=== PATIENT | female | born 1970 | race Caucasian/White ===

== ENCOUNTER 2018-08-02 02:00 | Observation (INO) ==
[2018-08-02] MEDS ORDERED: 0.9 % Sodium Chloride 1,000 ML IVC ONE (02:30)
[2018-08-02] MEDS ORDERED: Ipratropium/Albuterol Neb 3 ML IH ONE ×2 (02:37)
--- NOTE | 2018-08-02 02:37 | Emergency Department Note ---
Disposition Clinical Impression: Pneumonia Disposition: Admitted As Inpatient Condition: Fair Time of Disposition: 03:10 SOB HPI - General Chief Complaint: ED Shortness of Breath/Dyspnea Stated Complaint: Flu symptoms trouble breathing Time Seen by Provider: 08/02/18 02:15 Source: patient Limitations: no limitations Nursing Notes Reviewed: Yes Vital Signs Reviewed: Yes - History of Present Illness Ms. Durán had flulike symptoms about a week ago and has been progressively worse. She has had some ill contacts with similar symptoms who have resolved. She has been feeling the way she is now for the last couple of days coughing productively brownish sputum short of breath with a lot of right sided back pain on coughing and deep inspiration and diffuse muscle aches. She is a smoker but does not take any home medications. Fevers in the past week up to 103. By mouth intake markedly decreased secondary to no energy and no appetite. No nausea vomiting or diarrhea. - Related Data Home Medications Medication Instructions Recorded Confirmed No Known Home Drugs 08/02/18 08/02/18 Allergies Allergy/AdvReac Type Severity Reaction Status Date / Time No Known Allergies Allergy Verified 08/02/18 02:40 Constitutional: Reports: fever ENT ED: Denies: congestion Cardiovascular: Reports: dyspnea on exertion Respiratory: Reports: cough, dyspnea Gastrointestinal: Denies: nausea, vomiting, diarrhea Genitourinary: Reports: other (Decrease frequency of urination) Musculoskeletal: Reports: back pain, myalgia Integumentary: Denies: rash Neurological: Denies: headache Endocrine: Reports: fatigue Hematological/Lymphatic: Denies: easy bleeding, easy bruising Past Medical History - Past Medical History Medical history: Reports: no medical history - Social History Smoking Status: Current every day smoker Drug use: Reports: marijuana Physical Exam - General Limitations: no limitations General appearance: alert, in distress (Complaining of diffuse pain especially right mid back), other (She appears much older than stated age) - Head Head exam: atraumatic, normocephalic - Eye Eye exam: Present: normal appearance - ENT ENT exam: mucous membranes dry - Neck Neck exam: Present: normal inspection - Chest Chest inspection: Present: normal inspection, symmetric chest wall rise - Respiratory Respiratory exam: Present: normal lung sounds bilaterally (Clear to auscultation but decreased air movement). Absent: wheezes, stridor - Cardiovascular Cardiovascular exam: Present: tachycardia - Abdominal Exam Abdominal exam: Present: soft, Non-Tender - Extremities Exam Extremities exam: Present: calf tenderness (Bilateral calf tenderness. No erythema swelling or cord). Absent: pedal edema - Neurological Exam Neurological exam: Present: alert - Psychiatric Psychiatric exam: Present: agitated, anxious - Skin Skin exam: Present: warm, dry Course Vital Signs Temperature 98.1 F 08/02/18 02:10 Pulse Rate 115 08/02/18 02:10 Respiratory Rate 20 08/02/18 02:10 Blood Pressure 139/91 08/02/18 02:10 O2 Sat by Pulse Oximetry 96 08/02/18 02:10 Temperature 98.1 F 08/02/18 02:10 Pulse Rate 123 08/02/18 03:44 Respiratory Rate 29 08/02/18 03:44 Blood Pressure 131/76 08/02/18 03:44 O2 Sat by Pulse Oximetry 97 08/02/18 03:44 Oxygen Delivery Oxygen Delivery Nasal Cannula Shortness of Breath/Dyspnea - MDM Narrative Medical decision making narrative: Pneumonia. This is the most likely explanation for her symptoms. It sounds like she could have started with influenza. Levaquin 500 mg IV started along with fluids. She was given Toradol for her muscle aches and right-sided back pain which is probably pleuritic from the pneumonia. She appears to be much more comfortable than when she arrived. She is O2 dependent at this point resting comfortably on 2 L. We will need to bring her in the hospital because of this. I spoke with the covering hospitalist and presented the case. He accepted admission. - Lab Data Lab results reviewed: Yes I reviewed the patient's lab results. Result diagrams: 08/02/18 02:46 08/02/18 02:46 Lab Results 08/02/18 08/02/18 08/02/18 Range/Units 02:46 02:46 02:46 WBC 9.3 (4.3-11.1) K/mcL RBC 4.34 (3.82-4.97) M/mcL Hgb 12.7 (11.5-15.4) g/dL Hct 37.6 (35.3-44.9) % MCV 86.6 (83.0-100.0) fL MCH 29.3 (28.0-33.3) pg MCHC 33.8 (31.6-35.5) g/dL RDW 12.3 (11.5-14.5) % Plt Count 236 (140-400) K/mcL MPV 9.9 (9.4-12.4) fL Immature Gran % 0.9 (0-4) % Seg Neutrophils % 86.0 % Lymphocytes % 9.0 % Monocytes % 4.0 % Eosinophils % 0.0 % Basophils % 0.1 % Neutrophils # 8.0 (1.6-8.9) K/mcL Lymphocytes # 0.8 (0.6-4.6) K/mcL Monocytes # 0.4 (0.0-1.3) K/mcL Eosinophils # 0.0 (0.0-0.6) K/mcL Basophils # 0.0 (0.0-0.2) K/mcL Platelet Estimate Normal (Normal) VBG pH (7.32-7.42) pH Units VBG pCO2 (41-51) mmHg VBG pO2 (25-50) mmHg VBG HCO3 (21-27) mEq/L Sodium 133 L (136-145) mEq/L Potassium 3.9 (3.5-5.1) mEq/L Chloride 97 L (98-107) mEq/L Carbon Dioxide 28 (23-29) mEq/L BUN 9 (6-20) mg/dL Creatinine 0.61 (0.60-1.20) mg/dL Est GFR ( Amer) > 60 (> 60) Est GFR (Non-Af Amer) > 60 (> 60) BUN/Creatinine Ratio 15 (6-26) Glucose 138 H (70-105) mg/dL Calculated Osmolality 277 L (280-300) Lactic Acid (0.5-2.2) mmol/L Calcium 8.2 L (8.6-10.3) mg/dL Magnesium 1.5 L (1.6-2.6) mg/dL Total Bilirubin 0.4 (0.3-1.0) mg/dL AST 22 (13-39) Units/L ALT 16 (7-52) Units/L Alkaline Phosphatase 77 (34-104) Units/L Creatine Kinase 165 (30-223) Units/L Serum Total Protein 6.3 L (6.4-8.9) g/dL Albumin 3.4 L (3.5-5.7) g/dL Globulin 2.9 (2.4-3.5) g/dL Albumin/Globulin Ratio 1.2 (1.1-2.2) TSH 1.828 (0.340-5.600) mcIU/mL 08/02/18 08/02/18 Range/Units 02:46 02:51 WBC (4.3-11.1) K/mcL RBC (3.82-4.97) M/mcL Hgb (11.5-15.4) g/dL Hct (35.3-44.9) % MCV (83.0-100.0) fL MCH (28.0-33.3) pg MCHC (31.6-35.5) g/dL RDW (11.5-14.5) % Plt Count (140-400) K/mcL MPV (9.4-12.4) fL Immature Gran % (0-4) % Seg Neutrophils % % Lymphocytes % % Monocytes % % Eosinophils % % Basophils % % Neutrophils # (1.6-8.9) K/mcL Lymphocytes # (0.6-4.6) K/mcL Monocytes # (0.0-1.3) K/mcL Eosinophils # (0.0-0.6) K/mcL Basophils # (0.0-0.2) K/mcL Platelet Estimate (Normal) VBG pH 7.47 H (7.32-7.42) pH Units VBG pCO2 38 L (41-51) mmHg VBG pO2 22 L (25-50) mmHg VBG HCO3 27 (21-27) mEq/L Sodium (136-145) mEq/L Potassium (3.5-5.1) mEq/L Chloride (98-107) mEq/L Carbon Dioxide (23-29) mEq/L BUN (6-20) mg/dL Creatinine (0.60-1.20) mg/dL Est GFR ( Amer) (> 60) Est GFR (Non-Af Amer) (> 60) BUN/Creatinine Ratio (6-26) Glucose (70-105) mg/dL Calculated Osmolality (280-300) Lactic Acid 1.3 (0.5-2.2) mmol/L Calcium (8.6-10.3) mg/dL Magnesium (1.6-2.6) mg/dL Total Bilirubin (0.3-1.0) mg/dL AST (13-39) Units/L ALT (7-52) Units/L Alkaline Phosphatase (34-104) Units/L Creatine Kinase (30-223) Units/L Serum Total Protein (6.4-8.9) g/dL Albumin (3.5-5.7) g/dL Globulin (2.4-3.5) g/dL Albumin/Globulin Ratio (1.1-2.2) TSH (0.340-5.600) mcIU/mL - Radiology Data Radiology results reviewed: Yes I reviewed the patient's radiology results.
[2018-08-02 02:52] LABS: Basophils % 0.1 %; Hematocrit 37.6 % (35.3-44.9); Hemoglobin 12.7 g/dL (11.5-15.4); Immature Granulocytes % 0.9 % (0-4); Lymphocytes # 0.8 K/mcL (0.6-4.6); Mean Corpuscular HGB Conc 33.8 g/dL (31.6-35.5); Mean Corpuscular Hemoglobin 29.3 pg (28.0-33.3); Mean Corpuscular Volume 86.6 fL (83.0-100.0); Mean Platelet Volume 9.9 fL (9.4-12.4); Monocytes # 0.4 K/mcL (0.0-1.3); Platelet Count 236 K/mcL (140-400); Red Blood Count 4.34 M/mcL (3.82-4.97); Red Cell Distribution Width 12.3 % (11.5-14.5)
[2018-08-02 02:56] LABS: VBG HCO3 27 mEq/L (21-27); VBG PCO2 38 mmHg (41-51); VBG PH 7.47 pH Units (7.32-7.42); VBG PO2 22 mmHg (25-50)
[2018-08-02] MEDS ORDERED: Levofloxacin 500 MG/100 ML 500 MG/100 ML BAG IVPB ONE (03:05)
[2018-08-02 03:10] LABS: Alanine Aminotransferase 16 Units/L (7-52); Albumin 3.4 g/dL (3.5-5.7); Albumin/Globulin Ratio 1.2 (1.1-2.2); Alkaline Phosphatase 77 Units/L (34-104); Aspartate Amino Transferase 22 Units/L (13-39); BUN/Creatinine Ratio 15 (6-26); Bilirubin,Total 0.4 mg/dL (0.3-1.0); Blood Urea Nitrogen 9 mg/dL (6-20); Calcium 8.2 mg/dL (8.6-10.3); Carbon Dioxide 28 mEq/L (23-29); Chloride 97 mEq/L (98-107); Creatine Kinase 165 Units/L (30-223); Globulin 2.9 g/dL (2.4-3.5); Glucose 138 mg/dL (70-105); Osmolality,Calculated 277 (280-300); Potassium 3.9 mEq/L (3.5-5.1); Sodium 133 mEq/L (136-145); Total Protein 6.3 g/dL (6.4-8.9); eGFR For Non-African Americans > 60 (> 60)
[2018-08-02] MEDS ORDERED: Ketorolac 30 MG/ML VIAL IVP ONE (03:22)
[2018-08-02 03:23] LABS: Platelet Estimate Normal (Normal)
[2018-08-02 03:38] LABS: Thyroid Stimulating Hormone 1.828 mcIU/mL (0.340-5.600)
[2018-08-02] MEDS ORDERED: Ondansetron 4 MG/2 ML VIAL IVP PRN (03:44)
[2018-08-02] MEDS ORDERED: Naloxone 0.4 MG/ML INJ IVP PRN (03:44)
[2018-08-02] MEDS ORDERED: Levofloxacin 500 MG/100 ML 500 MG/100 ML BAG IVPB SCH (04:00)
[2018-08-02 05:45] LABS: INR 1.1; Prothrombin Time 12.5 Seconds (9.4-12.1)
[2018-08-02] MEDS: Ketorolac 30 MG/ML VIAL IVP PRN ×2 (05:47→13:18)
[2018-08-02] MEDS: *HR* Enoxaparin 40 MG/0.4 ML SYRINGE SQ SCH (05:48)
[2018-08-02] MEDS: 0.9 % Sodium Chloride 1,000 ML IVC SCH ×2 (05:49→14:42)
[2018-08-02] MEDS ORDERED: Isovue-370 500 ML BOTTLE IVP ONE (06:16)
--- NOTE | 2018-08-02 11:23 | Internal Med History&Physical ---
Addendum entered and electronically signed by Marek Francisco MD 08/02/18 11:52: Also, she has mediastinal lymphadenopathy which should be followed up, in the future, by her primary care physician. Addendum entered and electronically signed by Marek Francisco MD 08/02/18 11:45: I have personally performed a face to face evaluation on this patient. I have reviewed and agree with the care plan. History and Exam by me shows: Patient with a 7 day history of "flu" and 24 hours of dyspnea and cough. She denies fevers or chills. However, she has severe right rib pain, which she states is worse overnight. She states that she has not had much in the way of productivity with her phlegm. The patient is a smoker and smokes about half pack a day now but smoked up to a pack and a half, previously. She lives at home, his no longer working at [employer] because she has been able to stay at home. She lives with her and son. She denies alcohol intake but smokes marijuana occasionally. Past medical history is unremarkable. Family history is noncontributory. Patient has no complaint of chest discomfort, dyspnea, orthopnea, breathing problems, palpitations, nausea or vomiting, constipation or diarrhea, other jey nges in bowel habits, heartburn, difficulty with urination, kidney problems or kidney stones, fevers chills or sweats, rash or itching, seizures, headache or lightheadedness, heat or cold intolerance, blood problems or anemia, or other new complaints, except as mentioned above. Review of systems is otherwise negative. Examination: (Except as mentioned above): General: In no apparent distress, alert and oriented 3. She is complaining of severe right chest pain. Head: Atraumatic and normocephalic. Eyes: Extraocular muscles are intact, pupils equal round and reactive to light and accommodation. Sclerae anicteric. Ears: External ears are normal to inspection and hearing is grossly normal. Nose: Patent without lesion noted. Mouth: No intraoral lesions seen. Dentition is unremarkable. Neck: Supple with trachea midline. There is no thyromegaly or adenopathy and carotids are 2+ without bruit heard. Respiratory: No use of accessory muscles. Lungs are clear throughout. Airflow is diminished, diffusely. There is no egophony or fremitus. Cardiovascular: Regular rate and rhythm without murmur appreciated. Abdomen: Bowel sounds are normal. No hepatosplenomegaly masses or tenderness. Extremities: No cyanosis clubbing or edema. Neurological: A and O 3. Cranial nerves II through XII are intact. No focal deficits and no abnormal movements or postures. Skin: Warm and non-diaphoretic with no lesions noted. Breasts, pelvic and rectal: Not examined. The patient has a history of drug-seeking day. The past, per nursing. No current knowledge of drug use. However, she has requested medications for chest pain and is crying out in pain. However, when asked questions, she is able to talk and relax, comfortably. I ordered a follow-up chest x-ray and rib films but she refused. We will try a lidocaine patch and ice pack for her rib complaints assuming that this is pleuritic chest pain. She will be treated with IV steroids and antibiotics. We will admit her for prolonged IV therapy. Original Note: Date of Encounter: 08/02/18 Time of Encounter: 11:16 Assessment and Plan (1) Pneumonia Current visit: Yes Status: Acute Patient admitted to emergency department for right pneumonia. Patient currently continues with complaints of a pleuritic type pain to her right chest flank that increases with inspiration and on palpation. Patient states she continues to have productive cough. CTA was obtained which shows no acute issues. Patient has been on Toradol for her complaints of pleuritic pain with minimal effect. A PA and lateral chest x-ray was ordered to evaluate any possible rib fracture, but patient refused the x-ray stating she was in pain. We will apply a Lidoderm patch to her right chest flank. No hypoxia. Continue to monitor closely. We will continue on Levaquin. Qualifiers: Pneumonia type: due to unspecified organism Laterality: right Lung location: unspecified part of lung Qualified Code(s): J18.9 - Pneumonia, unspecified organism (2) Pleurisy Current visit: Yes Status: Acute Patient continues with complaints of pain to her right chest flank. We will continue on Toradol and start Lidoderm patches. No rub or crepitus noted. Patient refusing further chest x-rays to evaluate for rib fracture. We will continue with current plan of care. Sedimentation rate pending Internal Medicine - H&P: HPI Chief complaint: pneumonia Admitted From: Emergency Dept Plans for Post Hospital Care: Home History of present illness: Ms. Durán is a 48 year old female, who presented to emergency department with complaints of increasing shortness of breath and productive cough. Patient had stated that she has had flulike symptoms over the past week which have progressed. Patient had chest x-ray which was obtained which shows possible right pneumonia and airway inflammation. Patient was admitted to this facility for further evaluation and treatment. Patient has been started on Levaquin and received nebulizer treatments overnight. Patient states she continues to have a productive cough. Patient currently with complaints of severe pain to her right chest flank which increases with inspiration. Patient had a CTA that was performed which shows no acute issues. Lungs are diminished throughout lower rice, but no rub or crepitus noted. Patient denies any recent falls or injuries. Patient reports no medical history. Patient does state that she has a daily cigarette smoker and does use marijuana. 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 Psychiatric history: anxiety - Past Surgical History Surgical History: other Additional surgical history: Tubal - Social History Smoking Status: Current every day smoker Packs per day: 1/2 Smokeless Tobacco Status: No Alcohol use: none Drug use: marijuana - Family History Father Living Status: Hx Family Cardiac Disorders: Yes Hx Family Cancer: Yes Hx Family Endocrine Disorder: Yes Internal Medicine - H&P: Meds No Known Home Drugs 08/02/18 [History] Allergy/AdvReac Type Severity Reaction Status Date / Time No Known Allergies Allergy Verified 08/02/18 02:40 All Systems PM: A 10-system review of systems was performed and is negative for pertinent findings except as documented above in the HPI. - Constitutional Constitutional: as per HPI, no chills, no fever(s), no night sweats - EENT Eyes: as per HPI, no change in vision, no discharge, no pain, no photophobia Ears: no ear discharge, no ear pain, no tinnitus Nose, mouth and throat: as per HPI, no dysphagia, no nasal discharge, no neck pain, no sore throat - Cardiovascular Cardiovascular ROS IM: as per HPI, no chest pain, no diaphoresis, no dyspnea, no lightheadedness, no palpitations, no syncope - Respiratory Respiratory: as per HPI, no cough, no dyspnea, no wheezing, no excessive phlegm production - Gastrointestinal Gastrointestinal: as per HPI, no abdominal pain, no diarrhea, no hematemesis, no hematochezia, no melena, no nausea, no vomiting - Genitourinary Genitourinary: as per HPI, no change in urinary stream, no dysuria, no flank pain, no hematuria - Musculoskeletal Musculoskeletal ROS IM: as per HPI, no numbness, no tingling - Integumentary Integumentary IM: as per HPI, no rash, no unusual bruising - Neurological Neurological ROS: as per HPI, no confusion, no convulsions, no focal weakness, no numbness, no tingling, no tremor(s) - Hematologic/Lymphatic Hematologic/Lymphatic: no easy bruising - Constitutional Vitals: Temp Pulse Resp BP Pulse Ox 97.9 F 116 22 103/69 96 08/02/18 07:30 08/02/18 09:14 08/02/18 09:14 08/02/18 07:30 08/02/18 09:14 General appearance: Present: A&O X 3 Exam: Patient appears restless, grimacing frequently - Head Head exam: Present: atraumatic, normocephalic - Eye Eye exam: Present: PERRL, conjuntiva pink, sclera anicteric Pupils: Present: PERRL - Neck Neck exam general surgery: Present: supple, trachea midline. Absent: l ymphadenopathy - Respiratory Respiratory exam: Present: CTAB. Absent: accessory muscle use, rales, rhonchi, wheezes Additional comments: Lungs are diminished to bases but otherwise are clear to auscultation. Cough noted. Patient with complaints of pain during inspiration. No crepitus or rubs heard during auscultation. Slight tenderness to right chest on palpation. - Cardiovascular Cardiovascular exam: Present: RRR, +S1, +S2. Absent: diastolic murmur, gallop, rubs, systolic murmur - GI/Abdominal GI/Abdominal exam: Present: normal bowel sounds, soft, no peritoneal signs. Absent: distended, tenderness - Extremities Exam Extremities exam: Present: warm, radial pulses palpable and symmetrical. Absent: calf tenderness, cyanotic, pedal edema - Neurological Exam Neurological exam: Present: CN II-XII intact, oriented X3, no focal deficits. Absent: pronater drift, facial droop, speech deficit - Skin Skin exam: Present: dry, intact Internal Med - H&P Results - Labs CBC & Chem 7: 08/02/18 02:46 08/02/18 02:46 Labs: Short CBC 08/02/18 Range/Units 02:46 WBC 9.3 (4.3-11.1) K/mcL Hgb 12.7 (11.5-15.4) g/dL Hct 37.6 (35.3-44.9) % Plt Count 236 (140-400) K/mcL Neutrophils # 8.0 (1.6-8.9) K/mcL BMP 08/02/18 02:46 Sodium 133 L Potassium 3.9 Chloride 97 L Carbon Dioxide 28 BUN 9 Creatinine 0.61 Glucose 138 H Calcium 8.2 L Liver Function 08/02/18 Range/Units 02:46 Total Bilirubin 0.4 (0.3-1.0) mg/dL AST 22 (13-39) Units/L ALT 16 (7-52) Units/L Alkaline Phosphatase 77 (34-104) Units/L Albumin 3.4 L (3.5-5.7) g/dL - ABG Interpretation ABG results: 08/02/18 02:51 VBG pH 7.47 H VBG pCO2 38 L VBG pO2 22 L VBG HCO3 27 - Impressions ITS Impressions Chest X-Ray 08/02/18 02:31 IMPRESSION: Mild airway inflammation. Focal airspace disease in the peripheral right mid lung suspicious for developing pneumonia. RECOMMENDATION: Follow-up radiographs in 8 weeks to assess right mid lung opacity. D/ / Isidoro Mitchell / Isidoro Mitchell Interpreting Provider: Isidoro Mitchell Chest CTA 08/02/18 06:16 IMPRESSION: Negative for acute pulmonary embolism or acute aortic abnormality. Multifocal pneumonia, most severe at the right lung base. Consider aspiration as an etiology given dependent tracheal secretions. Mediastinal hilar lymphadenopathy is presumably reactive. D/ / Isidoro Mitchell / Isidoro Mitchell Interpreting Provider: Isidoro Mitchell
[2018-08-02] MEDS: *HR* HYDROcodone/Acet 5/325 mg TABLET PO PRN (17:58)
[2018-08-02 20:33] LABS: Bilirubin,Urine Negative (Negative); Blood,Urine Negative (Negative); Clarity,Urine Clear (Clear); Color,Urine Yellow (Yellow); Glucose,Urine (UA) Normal (Normal); Ketones,Urine Negative (Negative); Leukocyte Esterase,Urine Negative (Negative); Nitrite,Urine Negative (Negative); Protein,Urine Negative (Neg-Trace); Urobilinogen,Urine Normal (Normal)
[2018-08-02 21:00] LABS: Amphetamine Screen,Urine Negative ng/mL (Cutoff=1000); Barbiturate Screen,Urine Negative ng/mL (Cutoff=200); Benzodiazepines Screen,Urine Negative ng/mL (Cutoff=200); Cannabinoid Screen,Urine Positive ng/mL (Cutoff = 50); Cocaine Screen,Urine Negative ng/mL (Cutoff= 300); Opiate Screen,Urine Positive ng/mL (Cutoff=300); Phencyclidine Screen,Urine Negative ng/mL (Cutoff=25)
[2018-08-03] MEDS: Levofloxacin 500 MG/100 ML 500 MG/100 ML BAG IVPB SCH (03:42)
[2018-08-03] MEDS ORDERED: Levofloxacin 500 MG/100 ML 500 MG/100 ML BAG IVPB SCH (04:00)
[2018-08-03] MEDS: *HR* Enoxaparin 40 MG/0.4 ML SYRINGE SQ SCH (06:09)
[2018-08-03] MEDS: *HR* HYDROcodone/Acet 5/325 mg TABLET PO PRN ×2 (06:14→15:43)
--- NOTE | 2018-08-03 13:37 | Internal Med Progress Note ---
Date of Encounter: 08/03/18 Time of Encounter: 13:36 - Assessment and plan (1) Pneumonia Current Visit: Yes Status: Acute Assessment and plan: We will continue IV antibiotics and plan discharged tomorrow. Qualifiers: Pneumonia type: due to unspecified organism Laterality: right Lung location: unspecified part of lung Qualified Code(s): J18.9 - Pneumonia, unspecified organism (2) Pleurisy Current Visit: Yes Status: Acute Assessment and plan: Markedly improved, symptomatically. Interestingly, her opioid screen was po sitive on admission. This makes drug seeking behavior questionable. - Subjective Interval history: Patient is without complaint. She states her pain is much better. She still has limited breathing but her cough and chest pain have markedly improved. She moved her bowels earlier. She has no acute complaints. We discussed the possibility of discharge tomorrow. Patient has no complaint of chest discomfort, dyspnea, orthopnea, palpitations, nausea or vomiting, constipation or diarrhea, other changes in bowel habits, difficulty with urination, rash or itching, or other new complaints, except as mentioned above. Review of systems is otherwise negative. I discussed management of her care with nursing staff. - Constitutional Vitals: Temp Pulse Resp BP Pulse Ox 97.5 F L 90 14 112/80 97 08/03/18 11:58 08/03/18 11:58 08/03/18 04:27 08/03/18 11:58 08/03/18 11:58 Exam: Examination: (Except as mentioned above): General: In no apparent distress. Alert and oriented 3. Nondiaphoretic. Head: Atraumatic and normocephalic. Respiratory: No use of accessory muscles. Lungs are clear throughout, with diminished airflow and occasional end expiratory wheeze. Cardiovascular: Regular rate and rhythm without murmur appreciated. Abdomen: Bowel sounds are normal. No hepatosplenomegaly mass or tenderness appreciated. Obese and therefore difficult to palpate deeply. Extremities: No cyanosis clubbing or edema. Skin: Warm and non-diaphoretic with no new lesions noted. Internal Medicine: Result - Labs CBC & Chem 7: 08/02/18 02:46 08/02/18 02:46 Labs: Urine 08/02/18 Range/Units 20:20 Urine Color Yellow (Yellow) Urine Clarity Clear (Clear) Urine pH 7.0 (5.0-8.0) pH Units Ur Specific [place] 1.010 (1.010-1.025) Urine Protein Negative (Neg-Trace) mg/dL Urine Glucose (UA) Normal (Normal) mg/dL - ABG Interpretation ABG results: PT/INR, D-dimer PT 12.5 Seconds (9.4-12.1) H 08/02/18 05:30 D-Dimer 1259 ng/mLFEU (0-500) H 08/02/18 05:30 - Impressions Impressions Ribs X-Ray 08/02/18 10:52 IMPRESSION: Right mid and lower lung field infiltrate/pneumonia seen to better advantage on CT from earlier in the same day. No acute osseous injury of the right ribs. D/ / 08/02/2018 13:59:32 Alireza Mendez MD / ora Interpreting Provider: Alireza Mendez MD Chest X-Ray 08/02/18 10:55 IMPRESSION: Right mid and lower lung field infiltrate/pneumonia seen to better advantage on CT from earlier in the same day. No acute osseous injury of the right ribs. D/ / 08/02/2018 13:59:32 Alireza Mendez MD / ora Interpreting Provider: Alireza Mendez MD Consult Discharge Plan - Plan Referrals: NONE,PCP [Primary Care Provider] -
[2018-08-03] MEDS ORDERED: Acetaminophen 325 MG TABLET PO PRN (20:21)
[2018-08-04] MEDS: *HR* HYDROcodone/Acet 5/325 mg TABLET PO PRN ×3 (00:18→12:32)
[2018-08-04] MEDS: Levofloxacin 500 MG/100 ML 500 MG/100 ML BAG IVPB SCH (04:02)
[2018-08-04] MEDS: *HR* Enoxaparin 40 MG/0.4 ML SYRINGE SQ SCH (05:07)
[2018-08-04] MEDS ORDERED: Nicotine 21 MG PATCH.TD24 TD SCH (10:00)
[2018-08-04 13:14] VITALS: BP 104/74
--- NOTE | 2018-08-04 14:57 | Discharge Summary ---
Orders not resulted at time of discharge: Pending orders 08/02/18 03:01 Culture,Blood [BC] Stat Date of Encounter: 08/04/18 Time of Encounter: 14:53 - Discharge Diagnosis (1) Pneumonia Priority: Primary Status: Acute Qualifiers: Pneumonia type: due to unspecified organism Laterality: right Lung location: unspecified part of lung Qualified Code(s): J18.9 - Pneumonia, unspecified organism (2) Pleurisy Priority: Secondary Status: Acute (3) Tobacco abuse Priority: Secondary Status: Acute Hospital course: Ms. Durán is a 48 year old female who presented with severe dyspnea, fatigue, some cough, pleuritic right chest pain, but all improved with IV Levaquin and systemic treatment. She states that her breathing is about senior living back to normal but her chest discomfort is essentially gone. She still has mild pain at the upper abdomen, from coughing. She is not making phlegm or if she does it is only a little bit of yellow discolored phlegm. Patient has no complaint of chest discomfort, dyspnea, orthopnea, palpitations, nausea or vomiting, constipation or diarrhea, other changes in bowel habits, difficulty with urination, rash or itching, or other new complaints, except as mentioned above. Review of systems is otherwise negative. I discussed management of her care with nursing staff. The patient has been instructed to use Levaquin daily for 1 week. She is to follow-up within the next week with her primary care provider, Melissa Bradford CNP. She is also been instructed to STOP SMOKING and she states that she has a nicotine patch, at home, which she will continue to use. - Time Spent with Patient Total time spent providing and/or coordinating discharge services: - Discharge Medications Prescriptions: New Levofloxacin [Levaquin] 500 mg PO DAILY #7 tablet Home Medications: Levofloxacin [Levaquin] 500 mg PO DAILY #7 tablet 08/04/18 [Rx] Allergies/Adverse Reactions: Allergy/AdvReac Type Severity Reaction Status Date / Time No Known Allergies Allergy Verified 08/02/18 02:40 Date of admission: 08/02/18 03:42 Primary care physician: Melissa Bradford CNP Discharging clinician: Marek Francisco Anticipated date of discharge: 08/04/18 - Constitutional Vitals: Temp Pulse Resp BP Pulse Ox 97.7 F 81 15 104/74 96 08/04/18 13:13 08/04/18 13:13 08/04/18 13:13 08/04/18 13:13 08/04/18 13:13 Exam: Examination: (Except as mentioned above): General: In no apparent distress. Alert and oriented 3. Nondiaphoretic. Head: Atraumatic and normocephalic. Respiratory: No use of accessory muscles. Lungs are clear throughout, with the exception of rare expiratory wheeze. There is no egophony or fremitus. Normal airflow. Cardiovascular: Regular rate and rhythm without murmur appreciated. Abdomen: Bowel sounds are normal. No hepatosplenomegaly mass or tenderness a ppreciated. Obese and therefore difficult to palpate deeply. Extremities: No cyanosis clubbing or edema. Skin: Warm and non-diaphoretic with no new lesions noted. - Patient Status Disposition: Home, Self-Care Condition: Fair Functional capacity at discharge: independent ambulation Overall status at discharge: patient is progressing back to baseline - Discharge Instructions Follow Up With: NONE,PCP [Primary Care Provider] - - Diet and Activity Activity: increase activity as tolerated Diet: advance to your usual diet
== END 2018-08-04 15:27 | disposition home or self-care (01) ==
LOC: EMEROOGRE 02:00 → INPGRE 02:00